=== PATIENT | male | born 1990 | race Hispanic/Latino ===

== ENCOUNTER 2022-03-06 23:53 | Emergency (ER) | payer SELFPAY ==
[~2022-03-06] VITALS: Ht 167.6 cm; Wt 77.0 kg
[~2022-03-06 23:53] MED LIST: CLARITIN10 M1 PO; NO HOME MEDS; PERCOCET 5/325M1 TAB OR; ZPAK PO
[2022-03-07] MEDS ORDERED: ZITHROMAX TRI-500 MG PO (00:24)
[2022-03-07 00:31] VITALS: BP 143/105
== END 2022-03-07 00:35 | disposition home or self-care (01) | DRG 153 ==
LOC: ED 23:53
DX: J03.90 Acute tonsillitis, unspecified (principal)